=== PATIENT | female | born 1955 | race Caucasian/White ===

== ENCOUNTER → 2018-08-14 11:17 | Outpatient (CLI) | payer OTHER, SELFPAY ==
[2018-08-14 12:33] LABS: Hemoglobin A1C% w Est Avg Glu 6.9 % (4.0-6.0)
[2018-08-14 12:34] LABS: Add Manual Diff / Slide Review NO; Alanine Aminotransferase 31 IU/L (9-52); Albumin 4.4 g/dL (3.5-5.0); Albumin Globulin Ratio 1.6 (1.0-2.8); Alkaline Phosphatase 69 U/L (38-126); Aspartate Aminotransferase 23 IU/L (14-36); Basophils Percent Auto 1.8 % (0-2); Bilirubin Total 0.2 mg/dL (0.2-1.3); Blood Urea Nitrogen 23 mg/dL (7-17); Calcium 9.5 mg/dL (8.4-10.2); Carbon Dioxide 27 mmol/L (22-32); Chloride 100 mmol/L (98-107); Cholesterol 181 mg/dL (140-199); Eosinophils Percent Auto 1.8 % (2-4); Estimated Glomerular Filt Rate > 60.0 mL/min (>60); Globulin 2.7 g/dL (1.7-4.1); Glucose 140 mg/dL (80-110); HDL Cholesterol 61 mg/dL (40-60); HEMOLYSIS < 15 (0-50); Hematocrit 40.4 % (36-46); Hemoglobin 13.4 g/dL (12.0-16.0); LDL Cholesterol Calculated 64 mg/dL (<100); Lymphocytes Percent Auto 27.5 % (25-40); Mean Corpuscular HGB Conc 33.1 % (30-36); Mean Corpuscular Hemoglobin 28.3 PG (26-34); Mean Corpuscular Volume 85.5 fL (80-100); Monocytes Percent Auto 5.8 % (3-14); Neutrophils Absolute Auto 4500 /uL (3000-5900); Neutrophils Percent Auto 63.1 % (50-75); Platelet Count 311 X10^3/uL (150-400); Potassium 4.1 mmol/L (3.4-5.1); Red Blood Cell Count 4.72 X10^6/uL (4.0-5.2); Red Cell Distribution Width 13.3 % (11.6-14.8); Sodium 138 mmol/L (137-145); Total Protein 7.1 g/dL (6.3-8.2); Triglycerides 278 mg/dL (35-150); White Blood Cell Count 7.1 X10^3/uL (4.5-11.0)
[2018-08-14 13:05] LABS: TSH w/ Reflex to FT4 2.52 uIU/mL (0.47-4.68)
[2018-08-14 15:58] LABS: Vitamin D 25 Hydroxy (D3) 30.4 ng/mL (30.0-100.0)
== END ==
PROVIDERS: Visit Provider Student in an Organized Health Care Education/Training Program
DX: E55.9 Vitamin D deficiency, unspecified (principal); E66.9 Obesity, unspecified; E11.9 Type 2 diabetes mellitus without complications; M25.569 Pain in unspecified knee; R53.83 Other fatigue; I10 Essential (primary) hypertension
CPT/HCPCS: 36415; 80053; 80061; 82306; 83036; 84443; 85025

== ENCOUNTER → 2018-11-21 10:33 | Outpatient (CLI) | payer OTHER, SELFPAY ==
[2018-11-21 11:31] LABS: Alanine Aminotransferase 39 IU/L (9-52); Albumin 4.3 g/dL (3.5-5.0); Albumin Globulin Ratio 1.6 (1.0-2.8); Alkaline Phosphatase 68 U/L (38-126); Aspartate Aminotransferase 27 IU/L (14-36); BUN Creatinine Ratio 36.7 (6-22); Bilirubin Total 0.9 mg/dL (0.2-1.3); Blood Urea Nitrogen 22 mg/dL (7-17); Calcium 9.5 mg/dL (8.4-10.2); Carbon Dioxide 27 mmol/L (22-32); Chloride 99 mmol/L (98-107); Estimated Glomerular Filt Rate > 60.0 mL/min (>60); Globulin 2.7 g/dL (1.7-4.1); Glucose 151 mg/dL (80-110); HEMOLYSIS < 15 (0-50); Sodium 136 mmol/L (137-145); Triglycerides 79 mg/dL (35-150)
[2018-11-21 11:32] LABS: Hemoglobin A1C% w Est Avg Glu 7.6 % (4.0-6.0)
[2018-11-21 13:58] LABS: Creatinine Urine Random 46.2 mg/dL
[2018-11-21 14:08] LABS: Microalbumi Creatinin Ratio Ur 12.9 ug/mg CR (<30); Microalbumin Urine Random < 0.6 mg/dL (0-1.6)
== END ==
PROVIDERS: PCP Student in an Organized Health Care Education/Training Program; Visit Provider Student in an Organized Health Care Education/Training Program
DX: E11.9 Type 2 diabetes mellitus without complications (principal); E78.1 Pure hyperglyceridemia; E66.01 Morbid (severe) obesity due to excess calories; I10 Essential (primary) hypertension; Z79.899 Other long term (current) drug therapy
CPT/HCPCS: 36415; 80053; 82043; 82570; 83036; 84478

== ENCOUNTER → 2018-12-21 09:39 | Outpatient (CLI) | payer OTHER, SELFPAY ==
--- NOTE | 2018-12-21 09:42 | DI.MG.S_ITS ---
BILATERAL DIGITAL SCREENING MAMMOGRAM 3D/2D WITH CAD: 12/21/2018 CLINICAL: Routine screening. Comparison is made to exams dated: 07/02/2014 mammogram, 02/24/2011 mammogram, and 08/09/2009 mammogram - [facility]. There are scattered fibroglandular elements in both breasts. Current study was also evaluated with a Computer Aided Detection (CAD) system. There are benign calcifications in both breasts. No significant masses, calcifications, or other findings are seen in either breast. There has been no significant interval change. IMPRESSION: There is no mammographic evidence of malignancy. A 1 year screening mammogram is recommended. This exam was interpreted at Station ID: [id number]. NOTE: For mammograms, a report in lay terms will be sent to the patient. Approximately 15% of breast malignancies will not be visualized mammographically. In the management of a palpable breast mass, a negative mammogram must not discourage biopsy of a clinically suspicious lesion. Electronically Signed By: Ricardo rdz/hilary:12/23/2018 08:34:01 letter sent: Normal Exam ACR BI-RADS Category 2: Benign Finding(s) 3342F
== END ==
PROVIDERS: PCP Student in an Organized Health Care Education/Training Program; Visit Provider Student in an Organized Health Care Education/Training Program
DX: Z12.31 Encounter for screening mammogram for malignant neoplasm of breast (principal)
CPT/HCPCS: 77063; 77067

== ENCOUNTER → 2019-06-13 08:27 | Outpatient (CLI) | payer OTHER, SELFPAY ==
[2019-06-13 09:07] LABS: Hemoglobin A1C% w Est Avg Glu 7.1 % (4.0-6.0)
[2019-06-13 09:15] LABS: BUN Creatinine Ratio 33.3 (6-22); Blood Urea Nitrogen 20 mg/dL (7-17); Calcium 9.6 mg/dL (8.4-10.2); Carbon Dioxide 30 mmol/L (22-32); Chloride 98 mmol/L (98-107); Estimated Glomerular Filt Rate > 60.0 mL/min (>60); Glucose 149 mg/dL (80-110); HEMOLYSIS < 15 (0-50); Potassium 4.4 mmol/L (3.4-5.1); Sodium 138 mmol/L (137-145)
== END ==
PROVIDERS: PCP Student in an Organized Health Care Education/Training Program; Visit Provider Student in an Organized Health Care Education/Training Program
DX: E11.9 Type 2 diabetes mellitus without complications (principal); E87.1 Hypo-osmolality and hyponatremia; I10 Essential (primary) hypertension
CPT/HCPCS: 36415; 80048; 83036

== ENCOUNTER → 2019-06-17 09:43 | Outpatient (CLI) | payer OTHER, SELFPAY ==
--- NOTE | 2019-06-17 09:49 | DI.RAD.S_ITS ---
PROCEDURE: XR KNEE RT 3V INDICATIONS: Knee pain TECHNIQUE: 3 views of the knee were acquired. COMPARISON: None. FINDINGS: Bones: No fractures or dislocations. No suspicious bony lesions. Severe tricompartmental knee joint degeneration secondary to osteoarthritis. Soft tissues: Small joint effusion. No suspicious soft tissue calcifications. IMPRESSION: Severe osteoarthritis. Dictated by: Lucrecia Herrera M.D. on 06/17/2019 at 17:17 Approved by: Lucrecia Herrera M.D. on 06/17/2019 at 17:18
== END ==
PROVIDERS: PCP Student in an Organized Health Care Education/Training Program; Visit Provider Student in an Organized Health Care Education/Training Program
DX: M25.561 Pain in right knee (principal); M17.11 Unilateral primary osteoarthritis, right knee
CPT/HCPCS: 73562

== ENCOUNTER → 2019-09-19 09:57 | Outpatient (CLI) | payer OTHER, SELFPAY ==
[2019-09-19 10:30] LABS: Hemoglobin A1C% w Est Avg Glu 7.7 % (4.0-6.0)
[2019-09-19 11:01] LABS: Creatinine Urine Random 40.1 mg/dL
[2019-09-19 11:07] LABS: Microalbumi Creatinin Ratio Ur 14.9 ug/mg CR (<30); Microalbumin Urine Random < 0.6 mg/dL (0-1.6)
== END ==
PROVIDERS: PCP Student in an Organized Health Care Education/Training Program; Visit Provider Student in an Organized Health Care Education/Training Program
DX: E11.9 Type 2 diabetes mellitus without complications (principal)
CPT/HCPCS: 36415; 82043; 82570; 83036

== ENCOUNTER → 2019-10-02 14:03 | Outpatient (CLI) | payer OTHER, SELFPAY ==
[2019-10-02 14:11] LABS: Bacteria Urine None Seen
[2019-10-02 15:30] LABS: Appearance Urine UA CLEAR; Bilirubin Urine UA NEGATIVE (NEGATIVE); Color Urine UA YELLOW; Glucose Urine UA NEGATIVE (Negative); Ketones Urine UA NEGATIVE (NEGATIVE); Leukocyte Esterase Urine UA TRACE (NEGATIVE); Nitrite Urine UA NEGATIVE (Negative); Occult Blood Urine UA NEGATIVE (Negative); Protein Urine UA NEGATIVE (Negative); Urobilinogen Urine UA 0.2 E.U./dL (0.2)
[2019-10-02 15:35] LABS: pH Urine UA 6.5 (4.5-8.0)
[2019-10-02 15:46] LABS: Culture Indicated Urine Cult Not Indicated; RBC Urine 0-1/HPF (0-5/HPF); Squamous Epithelial Cell Urine 0-1 /HPF (0-5/HPF); WBC Urine 0-1/HPF (0-5/HPF)
== END ==
PROVIDERS: PCP Student in an Organized Health Care Education/Training Program; Visit Provider Student in an Organized Health Care Education/Training Program
DX: R35.0 Frequency of micturition (principal)
CPT/HCPCS: 81001

== ENCOUNTER → 2019-12-30 07:02 | Outpatient (CLI) | payer OTHER, SELFPAY ==
[2019-12-30 08:21] LABS: Hemoglobin A1C% w Est Avg Glu 6.8 % (4.0-6.0)
== END ==
PROVIDERS: PCP Student in an Organized Health Care Education/Training Program; Referring Provider Student in an Organized Health Care Education/Training Program; Visit Provider Student in an Organized Health Care Education/Training Program
DX: E11.9 Type 2 diabetes mellitus without complications (principal)
CPT/HCPCS: 36415; 83036

== ENCOUNTER → 2020-09-17 10:44 | Outpatient (CLI) | payer OTHER, SELFPAY ==
[2020-09-17 11:57] LABS: Hemoglobin A1C% w Est Avg Glu 7.2 % (4.0-6.0)
[2020-09-17 12:19] LABS: BUN Creatinine Ratio 27.6 (6-22); Blood Urea Nitrogen 29 mg/dL (7-17); Calcium 9.4 mg/dL (8.4-10.2); Carbon Dioxide 28 mmol/L (22-32); Chloride 104 mmol/L (98-107); Cholesterol 160 mg/dL (140-199); Estimated Glomerular Filt Rate 52.9 mL/min (>60); Glucose 127 mg/dL (80-110); HDL Cholesterol 66 mg/dL (40-60); HEMOLYSIS < 15 (0-50); LDL Cholesterol Calculated 23 mg/dL (<100); Potassium 4.6 mmol/L (3.4-5.1); Sodium 134 mmol/L (137-145); Triglycerides 354 mg/dL (35-150)
[2020-09-17 12:20] LABS: Creatinine Urine Random 65.2 mg/dL
[2020-09-17 12:26] LABS: Microalbumin Urine Random < 0.6 mg/dL (0-1.6)
== END ==
PROVIDERS: PCP Student in an Organized Health Care Education/Training Program; Referring Provider Student in an Organized Health Care Education/Training Program; Visit Provider Student in an Organized Health Care Education/Training Program
DX: E11.69 Type 2 diabetes mellitus with other specified complication (principal); E78.5 Hyperlipidemia, unspecified; I10 Essential (primary) hypertension
CPT/HCPCS: 36415; 80048; 80061; 82043; 82570; 83036

== ENCOUNTER → 2020-09-30 08:27 | Outpatient (CLI) | payer OTHER, SELFPAY ==
[2020-09-30 09:55] LABS: BUN Creatinine Ratio 39.1 (6-22); Blood Urea Nitrogen 27 mg/dL (7-17); Estimated Glomerular Filt Rate > 60.0 mL/min (>60); Triglycerides 178 mg/dL (35-150)
== END ==
PROVIDERS: PCP Student in an Organized Health Care Education/Training Program; Referring Provider Student in an Organized Health Care Education/Training Program; Visit Provider Student in an Organized Health Care Education/Training Program
DX: E78.1 Pure hyperglyceridemia (principal); N17.9 Acute kidney failure, unspecified
CPT/HCPCS: 36415; 82565; 84478; 84520

== ENCOUNTER → 2020-12-21 07:42 | Outpatient (CLI) | payer OTHER, SELFPAY ==
[2020-12-21 08:51] LABS: Hemoglobin A1C% w Est Avg Glu 7.3 % (4.0-6.0)
== END ==
PROVIDERS: PCP Student in an Organized Health Care Education/Training Program; Referring Provider Student in an Organized Health Care Education/Training Program; Visit Provider Student in an Organized Health Care Education/Training Program
DX: E11.9 Type 2 diabetes mellitus without complications (principal)
CPT/HCPCS: 36415; 83036

== ENCOUNTER → 2021-07-01 09:14 | Outpatient (CLI) | payer OTHER, SELFPAY ==
[2021-07-01 10:29] LABS: Hemoglobin A1C% w Est Avg Glu 7.1 % (4.0-6.0)
== END ==
PROVIDERS: PCP Student in an Organized Health Care Education/Training Program; Referring Provider Student in an Organized Health Care Education/Training Program; Visit Provider Student in an Organized Health Care Education/Training Program
DX: E11.9 Type 2 diabetes mellitus without complications (principal)
CPT/HCPCS: 36415; 83036

== ENCOUNTER → 2021-10-19 09:35 | Outpatient (CLI) | payer MEDICARE, OTHER, SELFPAY ==
[2021-10-20 08:28] LABS: Fecal Immunochemical Test Negative (Negative)
== END ==
PROVIDERS: PCP Student in an Organized Health Care Education/Training Program; Referring Provider Student in an Organized Health Care Education/Training Program; Visit Provider Student in an Organized Health Care Education/Training Program
DX: Z12.11 Encounter for screening for malignant neoplasm of colon (principal)
CPT/HCPCS: 82274

== ENCOUNTER → 2022-01-11 09:34 | Outpatient (CLI) | payer MEDICARE, OTHER, SELFPAY ==
[2022-01-11 10:22] LABS: Hemoglobin A1C% w Est Avg Glu 8.1 % (4.0-6.0)
[2022-01-11 10:29] LABS: Blood Urea Nitrogen 24 mg/dL (7-17); Calcium 8.9 mg/dL (8.4-10.2); Carbon Dioxide 24 mmol/L (22-32); Chloride 103 mmol/L (98-107); Estimated Glomerular Filt Rate > 60 mL/min (>60); Glucose 172 mg/dL (80-110); HEMOLYSIS 33 (0-50); Potassium 4.4 mmol/L (3.4-5.1); Sodium 135 mmol/L (137-145); Triglycerides 153 mg/dL (35-150)
[2022-01-11 12:05] LABS: Creatinine Urine Random 66.5 mg/dL
[2022-01-11 12:11] LABS: Microalbumin Urine Random < 0.6 mg/dL (0-1.6)
== END ==
PROVIDERS: PCP Student in an Organized Health Care Education/Training Program; Referring Provider Student in an Organized Health Care Education/Training Program; Visit Provider Student in an Organized Health Care Education/Training Program
DX: E11.69 Type 2 diabetes mellitus with other specified complication (principal); E78.5 Hyperlipidemia, unspecified; E11.9 Type 2 diabetes mellitus without complications
CPT/HCPCS: 36415; 80048; 82043; 82570; 83036; 84478

== ENCOUNTER → 2022-04-21 07:53 | Outpatient (CLI) | payer MEDICARE, OTHER, SELFPAY ==
[2022-04-21 09:44] LABS: Hemoglobin A1C% w Est Avg Glu 7.2 % (4.0-6.0)
== END ==
PROVIDERS: PCP Student in an Organized Health Care Education/Training Program; Referring Provider Student in an Organized Health Care Education/Training Program; Visit Provider Student in an Organized Health Care Education/Training Program
DX: E11.9 Type 2 diabetes mellitus without complications (principal)
CPT/HCPCS: 36415; 83036

== ENCOUNTER → 2022-09-09 09:08 | Outpatient (CLI) | payer MEDICARE, OTHER, SELFPAY ==
[2022-09-09 09:31] LABS: Add Manual Diff / Slide Review NO; Basophils Absolute Auto 0 /uL (0-100); Basophils Percent Auto 0.7 % (0-2); Eosinophils Absolute Auto 100 /uL (0-450); Eosinophils Percent Auto 1.9 % (2-4); Hematocrit 39.2 % (36-46); Hemoglobin 13.3 g/dL (12.0-16.0); Lymphocytes Absolute Auto 1900 /uL (1100-4500); Lymphocytes Percent Auto 28.2 % (25-40); Mean Corpuscular HGB Conc 33.8 % (30-36); Mean Corpuscular Hemoglobin 28.3 PG (26-34); Mean Corpuscular Volume 83.6 fL (80-100); Monocytes Absolute Auto 400 /uL (0-900); Monocytes Percent Auto 6.4 % (3-14); Neutrophils Absolute Auto 4200 /uL (1500-7000); Neutrophils Percent Auto 62.8 % (50-75); Platelet Count 267 X10^3/uL (150-400); Red Blood Cell Count 4.69 X10^6/uL (4.0-5.2); Red Cell Distribution Width 13.8 % (11.6-14.8); White Blood Cell Count 6.7 X10^3/uL (4.5-11.0)
[2022-09-09 09:40] LABS: Hemoglobin A1C% w Est Avg Glu 7.1 % (4.0-6.0)
[2022-09-09 09:46] LABS: Alanine Aminotransferase 27 IU/L (<35); Albumin 4.1 g/dL (3.5-5.0); Albumin Globulin Ratio 1.4 (1.0-2.8); Alkaline Phosphatase 77 U/L (38-126); Aspartate Aminotransferase 26 IU/L (14-36); BUN Creatinine Ratio 30.6 (6-22); Bilirubin Total 0.9 mg/dL (0.2-1.3); Blood Urea Nitrogen 22 mg/dL (7-17); Calcium 8.9 mg/dL (8.4-10.2); Carbon Dioxide 25 mmol/L (22-32); Chloride 101 mmol/L (98-107); Cholesterol 169 mg/dL (140-199); Estimated Glomerular Filt Rate > 60 mL/min (>60); Glucose 134 mg/dL (80-110); HDL Cholesterol 62 mg/dL (40-60); HEMOLYSIS < 15 (0-50); LDL Cholesterol Calculated 70 mg/dL (<100); Potassium 4.1 mmol/L (3.4-5.1); Sodium 136 mmol/L (137-145); Total Protein 7.1 g/dL (6.3-8.2); Triglycerides 183 mg/dL (35-150)
[2022-09-09 10:16] LABS: Creatinine Urine Random 117.1 mg/dL
[2022-09-09 10:21] LABS: Microalbumi Creatinin Ratio Ur 9.3 ug/mg CR (<30); Microalbumin Urine Random 1.1 mg/dL (0-1.6)
== END ==
PROVIDERS: PCP Family Medicine; Referring Provider Family Medicine; Visit Provider Family Medicine
DX: E11.69 Type 2 diabetes mellitus with other specified complication (principal); E66.01 Morbid (severe) obesity due to excess calories; E78.5 Hyperlipidemia, unspecified; F10.10 Alcohol abuse, uncomplicated; I10 Essential (primary) hypertension
CPT/HCPCS: 36415; 80053; 80061; 82043; 82570; 83036; 85025

== ENCOUNTER → 2022-10-21 10:43 | Outpatient (CLI) | payer MEDICARE, OTHER, SELFPAY ==
[2022-10-21 13:12] LABS: Influenza A - CEPHEID Flu A NEGATIVE (NEGATIVE); Influenza B - CEPHEID Flu B NEGATIVE (NEGATIVE); Respiratory Syncytial Virus Negative (Negative)
[2022-10-21 13:13] LABS: COVID-19 CEPHEID 4-PLEX PCR POSITIVE (Negative)
== END ==
PROVIDERS: PCP Student in an Organized Health Care Education/Training Program; Visit Provider Physician Assistant
DX: U07.1 COVID-19 (principal); R05.9 Cough, unspecified; Z20.822 Contact with and (suspected) exposure to COVID-19
CPT/HCPCS: 0241U

== ENCOUNTER → 2023-01-10 08:56 | Outpatient (CLI) | payer MEDICARE, OTHER, SELFPAY ==
[2023-01-11 15:51] LABS: Fecal Immunochemical Test Negative (Negative)
== END ==
PROVIDERS: PCP Student in an Organized Health Care Education/Training Program; Referring Provider Student in an Organized Health Care Education/Training Program; Visit Provider Student in an Organized Health Care Education/Training Program
DX: Z12.11 Encounter for screening for malignant neoplasm of colon (principal)
CPT/HCPCS: 82274

== ENCOUNTER → 2023-06-25 10:53 | Outpatient (CLI) | payer MEDICARE, OTHER, SELFPAY ==
[2023-06-25 12:17] LABS: Hemoglobin A1C% w Est Avg Glu 6.7 % (4.0-6.0)
[2023-06-25 12:32] LABS: Alanine Aminotransferase 25 IU/L (<35); Albumin 4.4 g/dL (3.5-5.0); Albumin Globulin Ratio 1.6 (1.0-2.8); Alkaline Phosphatase 73 U/L (38-126); Aspartate Aminotransferase 27 IU/L (14-36); BUN Creatinine Ratio 41.3 (6-22); Bilirubin Total 0.4 mg/dL (0.2-1.3); Blood Urea Nitrogen 33 mg/dL (7-17); Carbon Dioxide 24 mmol/L (22-32); Chloride 101 mmol/L (98-107); Estimated Glomerular Filt Rate > 60 mL/min (>60); Globulin 2.8 g/dL (1.7-4.1); Glucose 131 mg/dL (80-110); HEMOLYSIS < 15 (0-50); Potassium 4.4 mmol/L (3.4-5.1); Sodium 136 mmol/L (137-145); Total Protein 7.2 g/dL (6.3-8.2)
[2023-06-25 13:03] LABS: TSH w/ Reflex to FT4 2.67 uIU/mL (0.47-4.68)
[2023-06-25 14:48] LABS: Vitamin D 25 Hydroxy (D3) 36.5 ng/mL (30.0-100.0)
== END ==
PROVIDERS: PCP Student in an Organized Health Care Education/Training Program; Referring Provider Student in an Organized Health Care Education/Training Program; Visit Provider Student in an Organized Health Care Education/Training Program
DX: E11.9 Type 2 diabetes mellitus without complications (principal)
CPT/HCPCS: 36415; 80053; 82306; 83036; 84443

== ENCOUNTER → 2023-06-27 12:47 | Outpatient (CLI) | payer MEDICARE, OTHER, SELFPAY ==
--- NOTE | 2023-06-27 12:48 | DI.MG.S_ITS ---
BILATERAL DIGITAL SCREENING MAMMOGRAM 3D/2D WITH CAD: 06/27/2023 CLINICAL: Routine screening. Comparison is made to exams dated: 12/21/2018 mammogram - [facility], 07/02/2014 mammogram, and 02/24/2011 mammogram - [facility]. There are scattered areas of fibroglandular density in both breasts (category b / 25%-50% glandular tissue). Current study was also evaluated with a Computer Aided Detection (CAD) system. There is a possible developing focal asymmetry in the left breast at 2 o'clock middle depth. This is more prominent. No other significant masses, calcifications, or other findings are seen in either breast. IMPRESSION: INCOMPLETE: NEEDS ADDITIONAL IMAGING EVALUATION The possible developing focal asymmetry in the left breast is indeterminate. Additional views with possible ultrasound are recommended. Based on the Tyrer Cuzick model (a risk assessment model) the patient's lifetime risk is 4.7% and her 10 year risk is 2.4%. According to the ACR, ACS, and NCCN guidelines, an annual breast MRI exam along with mammogram is recommended if the patient's lifetime risk is 20% or greater. This exam was interpreted at Station ID: [id number]. NOTE: For mammograms, a report in lay terms will be sent to the patient. Approximately 15% of breast malignancies will not be visualized mammographically. In the management of a palpable breast mass, a negative mammogram must not discourage biopsy of a clinically suspicious lesion. Electronically Signed By: Ricardo Godoy M.D. aty/:06/28/2023 07:11:07 letter sent: Additional Imaging Needed ACR BI-RADS Category 0: Incomplete 3340F
== END ==
PROVIDERS: PCP Student in an Organized Health Care Education/Training Program; Referring Provider Student in an Organized Health Care Education/Training Program; Visit Provider Student in an Organized Health Care Education/Training Program
DX: Z12.31 Encounter for screening mammogram for malignant neoplasm of breast (principal); N64.89 Other specified disorders of breast
CPT/HCPCS: 77063; 77067

== ENCOUNTER → 2023-07-05 11:58 | Outpatient (CLI) | payer MEDICARE, OTHER, SELFPAY ==
--- NOTE | 2023-07-05 | DI.MG.S_ITS ---
UNILATERAL LEFT DIGITAL DIAGNOSTIC MAMMOGRAM 3D/2D WITH ADDITIONAL VIEWS: 07/05/2023 CLINICAL: Additional evaluation requested from prior study. Comparison is made to exams dated: 06/27/2023 mammogram, 12/21/2018 mammogram - [facility], and 07/02/2014 mamm[facility] - [facility]. There are scattered areas of fibroglandular density in the left breast (category b / 25%-50% glandular tissue). The possible developing focal asymmetry in the left breast at 2 o'clock middle depth is not reproduced and presumably represented superimposed breast tissue. No other significant masses or calcifications are seen in the breast. IMPRESSION: INCOMPLETE: NEEDS ADDITIONAL IMAGING EVALUATION An ultrasound is recommended to confirm the no longer seen focal asymmetry in the left breast middle depth. Based on the Tyrer Cuzick model (a risk assessment model) the patient's lifetime risk is 4.7% and her 10 year risk is 2.4%. According to the ACR, ACS, and NCCN guidelines, an annual breast MRI exam along with mammogram is recommended if the patient's lifetime risk is 20% or greater. This exam was interpreted at Station ID: [id number]. NOTE: For mammograms, a report in lay terms will be sent to the patient. Approximately 15% of breast malignancies will not be visualized mammographically. In the management of a palpable breast mass, a negative mammogram must not discourage biopsy of a clinically suspicious lesion. Electronically Signed By: Kwesi ervin/hilary:07/05/2023 13:35:06 ACR BI-RADS Category 0: Incomplete 3340F
--- NOTE | 2023-07-05 12:00 | DI.US.S_ITS ---
LIMITED ULTRASOUND OF LEFT BREAST AND AXILLA: 07/05/2023 CLINICAL: Patient returns today to evaluate a focal asymmetry in the left breast. Comparison is made to exams dated: 07/05/2023 mammogram, 06/27/2023 mammogram, 12/21/2018 mammogram - [facility], and 07/02/2014 mammogram - [facility]. Color flow ultrasound of the left breast 2 o'clock, and axilla regions was performed. Weeks scale images of the real-time examination were reviewed. There is a benign normal lymph node in the left breast at 2 o'clock that is an incidental finding. No significant abnormalities were seen sonographically in the left axilla. IMPRESSION: BENIGN There is no sonographic evidence of malignancy. There is no abnormality seen in the left breast to correspond with the mammography finding which is consistent with normal fibroglandular tissue. Return to annual mammogram screening schedule is recommended. This exam was interpreted at Station ID: [id number]. Electronically Signed By: Kwesi ervin/hilary:07/05/2023 13:38:00 letter sent: Normal Exam Ultrasound BI-RADS: 2 Benign
== END ==
PROVIDERS: PCP Student in an Organized Health Care Education/Training Program; Referring Provider Student in an Organized Health Care Education/Training Program; Visit Provider Student in an Organized Health Care Education/Training Program
DX: N63.20 Unspecified lump in the left breast, unspecified quadrant; Z85.831 Personal history of malignant neoplasm of soft tissue; R92.8 Other abnormal and inconclusive findings on diagnostic imaging of breast
CPT/HCPCS: 76642; 77065; G0279

== ENCOUNTER → 2023-10-29 09:40 | Outpatient (CLI) | payer MEDICARE, OTHER, SELFPAY ==
[2023-10-29 11:33] LABS: Hemoglobin A1C% w Est Avg Glu 8.2 % (4.0-6.0)
== END ==
PROVIDERS: PCP Student in an Organized Health Care Education/Training Program; Referring Provider Student in an Organized Health Care Education/Training Program; Visit Provider Student in an Organized Health Care Education/Training Program
DX: E11.9 Type 2 diabetes mellitus without complications (principal)
CPT/HCPCS: 36415; 83036

== ENCOUNTER → 2024-02-15 08:38 | Outpatient (CLI) | payer MEDICARE, OTHER, SELFPAY ==
[2024-02-15 10:11] LABS: Alanine Aminotransferase 16 IU/L (<35); Albumin 4.1 g/dL (3.5-5.0); Alkaline Phosphatase 55 U/L (38-126); Aspartate Aminotransferase 24 IU/L (14-36); BUN Creatinine Ratio 33.3 (6-22); Bilirubin Total 0.8 mg/dL (0.2-1.3); Blood Urea Nitrogen 28 mg/dL (7-17); Calcium 9.1 mg/dL (8.4-10.2); Carbon Dioxide 24 mmol/L (22-32); Chloride 108 mmol/L (98-107); Cholesterol 128 mg/dL (140-199); Estimated Glomerular Filt Rate > 60 mL/min (>60); Globulin 2.1 g/dL (1.7-4.1); Glucose 129 mg/dL (80-110); HDL Cholesterol 68 mg/dL (40-60); HEMOLYSIS < 15 (0-50); LDL Cholesterol Calculated 43 mg/dL (<100); Potassium 4.4 mmol/L (3.4-5.1); Sodium 139 mmol/L (137-145); Total Protein 6.2 g/dL (6.3-8.2); Triglycerides 84 mg/dL (35-150)
== END ==
PROVIDERS: PCP Student in an Organized Health Care Education/Training Program; Referring Provider Student in an Organized Health Care Education/Training Program; Visit Provider Student in an Organized Health Care Education/Training Program
DX: E11.9 Type 2 diabetes mellitus without complications (principal)
CPT/HCPCS: 36415; 80053; 80061

== ENCOUNTER → 2024-04-07 09:33 | Outpatient (CLI) | payer MEDICARE, OTHER, SELFPAY | PROVIDERS: PCP Student in an Organized Health Care Education/Training Program; Visit Provider Physician Assistant Medical | DX: R30.0 Dysuria (principal) | CPT/HCPCS: 87077; 87086; 87186 ==

== ENCOUNTER → 2024-05-16 08:53 | Outpatient (CLI) | payer MEDICARE, OTHER, SELFPAY ==
[2024-05-16 09:19] LABS: Add Manual Diff / Slide Review NO; Basophils Absolute Auto 100 /uL (0-100); Basophils Percent Auto 2.2 % (0-2); Eosinophils Absolute Auto 100 /uL (0-450); Eosinophils Percent Auto 2.2 % (2-4); Hematocrit 39.7 % (36-46); Hemoglobin 13.1 g/dL (12.0-16.0); Lymphocytes Absolute Auto 1500 /uL (1100-4500); Lymphocytes Percent Auto 27.8 % (25-40); Mean Corpuscular Hemoglobin 27.8 PG (26-34); Mean Corpuscular Volume 84.1 fL (80-100); Monocytes Absolute Auto 400 /uL (0-900); Neutrophils Absolute Auto 3400 /uL (1500-7000); Neutrophils Percent Auto 60.8 % (50-75); Platelet Count 319 X10^3/uL (150-400); Red Blood Cell Count 4.72 X10^6/uL (4.0-5.2); Red Cell Distribution Width 13.9 % (11.6-14.8); White Blood Cell Count 5.6 X10^3/uL (4.5-11.0)
[2024-05-16 10:08] LABS: Creatinine Urine Random 107.41 mg/dL
[2024-05-16 10:15] LABS: Microalbumin Urine Random 0.7 mg/dL (0-1.6)
[2024-05-16 10:16] LABS: Alanine Aminotransferase 19 IU/L (<35); Albumin 3.8 g/dL (3.5-5.0); Albumin Globulin Ratio 1.6 (1.0-2.8); Alkaline Phosphatase 59 U/L (38-126); Aspartate Aminotransferase 25 IU/L (14-36); BUN Creatinine Ratio 33.8 (6-22); Bilirubin Total 0.6 mg/dL (0.2-1.3); Blood Urea Nitrogen 23 mg/dL (7-17); Calcium 9.4 mg/dL (8.4-10.2); Carbon Dioxide 27 mmol/L (22-32); Chloride 102 mmol/L (98-107); Cholesterol 130 mg/dL (140-199); Estimated Glomerular Filt Rate > 60 mL/min (>60); Globulin 2.4 g/dL (1.7-4.1); Glucose 135 mg/dL (80-110); HDL Cholesterol 70 mg/dL (40-60); HEMOLYSIS < 15 (0-50); LDL Cholesterol Calculated 47 mg/dL (<100); Potassium 4.8 mmol/L (3.4-5.1); Sodium 134 mmol/L (137-145); Total Protein 6.2 g/dL (6.3-8.2); Triglycerides 64 mg/dL (35-150)
[2024-05-16 10:47] LABS: Hemoglobin A1C% w Est Avg Glu 6.2 % (4.0-6.0)
== END ==
PROVIDERS: PCP Student in an Organized Health Care Education/Training Program; Referring Provider Student in an Organized Health Care Education/Training Program; Visit Provider Student in an Organized Health Care Education/Training Program
DX: E11.9 Type 2 diabetes mellitus without complications (principal); I10 Essential (primary) hypertension
CPT/HCPCS: 36415; 80053; 80061; 82043; 82570; 83036; 85025

== ENCOUNTER → 2024-05-21 12:04 | Outpatient (CLI) | payer MEDICARE, OTHER, SELFPAY ==
[2024-05-23 10:40] LABS: Fecal Immunochemical Test Negative (Negative)
== END ==
PROVIDERS: PCP Student in an Organized Health Care Education/Training Program; Referring Provider Student in an Organized Health Care Education/Training Program; Visit Provider Student in an Organized Health Care Education/Training Program
DX: Z12.11 Encounter for screening for malignant neoplasm of colon (principal)
CPT/HCPCS: 82274

== ENCOUNTER → 2024-05-29 10:58 | Outpatient (CLI) | payer MEDICARE, OTHER, SELFPAY ==
[2024-05-29 12:09] LABS: Appearance Urine UA CLEAR; Bilirubin Urine UA NEGATIVE (NEGATIVE); Color Urine UA YELLOW; Glucose Urine UA NEGATIVE (Negative); Ketones Urine UA NEGATIVE (NEGATIVE); Leukocyte Esterase Urine UA TRACE (NEGATIVE); Nitrite Urine UA NEGATIVE (Negative); Occult Blood Urine UA NEGATIVE (Negative); Protein Urine UA NEGATIVE (Negative)
[2024-05-29 12:26] LABS: Bacteria Urine Occasional (0-1); Culture Indicated Urine Cult Not Indicated; RBC Urine 0-1/HPF (0-5/HPF); Squamous Epithelial Cell Urine 1-5 /HPF (0-5/HPF); Urine Volume 10mL (spun); WBC Urine 0-1/HPF (0-5/HPF)
== END ==
PROVIDERS: PCP Student in an Organized Health Care Education/Training Program; Referring Provider Urology; Visit Provider Urology
DX: R31.0 Gross hematuria (principal)
CPT/HCPCS: 81001

== ENCOUNTER → 2024-07-11 16:47 | Outpatient (CLI) | payer MEDICARE, OTHER, SELFPAY | PROVIDERS: PCP Student in an Organized Health Care Education/Training Program; Referring Provider Physician Assistant Medical; Visit Provider Physician Assistant Medical | DX: R30.0 Dysuria (principal); N81.4 Uterovaginal prolapse, unspecified | CPT/HCPCS: 87077; 87086; 87186 ==

== ENCOUNTER → 2024-07-19 09:12 | Outpatient (CLI) | payer MEDICARE, OTHER, SELFPAY ==
[2024-07-19 10:13] LABS: Appearance Urine UA CLEAR; Bilirubin Urine UA NEGATIVE (NEGATIVE); Color Urine UA YELLOW; Glucose Urine UA NEGATIVE (Negative); Ketones Urine UA NEGATIVE (NEGATIVE); Leukocyte Esterase Urine UA NEGATIVE (NEGATIVE); Nitrite Urine UA NEGATIVE (Negative); Occult Blood Urine UA NEGATIVE (Negative); Protein Urine UA NEGATIVE (Negative); Specific Gravity Urine UA 1.025 (1.000-1.035); Urobilinogen Urine UA 0.2 E.U./dL (0.2)
[2024-07-19 10:28] LABS: Amorphous Sediment Urine 1+; Bacteria Urine None Seen; Culture Indicated Urine Cult Not Indicated; RBC Urine 0-1/HPF (0-5/HPF); Squamous Epithelial Cell Urine 0-1 /HPF (0-5/HPF); Urine Volume 10mL (spun); WBC Urine 1-5/HPF (0-5/HPF)
== END ==
PROVIDERS: PCP Student in an Organized Health Care Education/Training Program; Referring Provider Student in an Organized Health Care Education/Training Program; Visit Provider Student in an Organized Health Care Education/Training Program
DX: R39.9 Unspecified symptoms and signs involving the genitourinary system (principal)
CPT/HCPCS: 81001

== ENCOUNTER → 2024-07-25 13:26 | Outpatient (CLI) | payer MEDICARE, OTHER, SELFPAY | PROVIDERS: PCP Student in an Organized Health Care Education/Training Program; Visit Provider Student in an Organized Health Care Education/Training Program | DX: N89.8 Other specified noninflammatory disorders of vagina (principal) | CPT/HCPCS: 87210 ==

== ENCOUNTER → 2024-07-25 13:39 | Outpatient (CLI) | payer MEDICARE, OTHER, SELFPAY ==
[2024-07-25 14:26] LABS: Add Manual Diff / Slide Review NO; Basophils Absolute Auto 200 /uL (0-100); Basophils Percent Auto 3.5 % (0-2); Eosinophils Absolute Auto 100 /uL (0-450); Eosinophils Percent Auto 1.7 % (2-4); Hematocrit 39.5 % (36-46); Hemoglobin 13.2 g/dL (12.0-16.0); Lymphocytes Absolute Auto 1400 /uL (1100-4500); Lymphocytes Percent Auto 26.7 % (25-40); Mean Corpuscular HGB Conc 33.4 % (30-36); Mean Corpuscular Hemoglobin 28.4 PG (26-34); Mean Corpuscular Volume 85.1 fL (80-100); Monocytes Absolute Auto 300 /uL (0-900); Monocytes Percent Auto 6.1 % (3-14); Neutrophils Absolute Auto 3200 /uL (1500-7000); Platelet Count 266 X10^3/uL (150-400); Red Blood Cell Count 4.64 X10^6/uL (4.0-5.2); Red Cell Distribution Width 16.2 % (11.6-14.8); White Blood Cell Count 5.2 X10^3/uL (4.5-11.0)
[2024-07-25 14:40] LABS: Alanine Aminotransferase 19 IU/L (<35); Albumin 4.4 g/dL (3.5-5.0); Albumin Globulin Ratio 2.1 (1.0-2.8); Alkaline Phosphatase 71 U/L (38-126); Aspartate Aminotransferase 23 IU/L (14-36); BUN Creatinine Ratio 40.9 (6-22); Bilirubin Total 0.5 mg/dL (0.2-1.3); Blood Urea Nitrogen 38 mg/dL (7-17); Carbon Dioxide 26 mmol/L (22-32); Chloride 105 mmol/L (98-107); Estimated Glomerular Filt Rate > 60 mL/min (>60); Globulin 2.1 g/dL (1.7-4.1); Glucose 112 mg/dL (80-110); HEMOLYSIS < 15 (0-50); Potassium 4.3 mmol/L (3.4-5.1); Sodium 139 mmol/L (137-145); Total Protein 6.5 g/dL (6.3-8.2)
[2024-07-25 15:08] LABS: TSH w/ Reflex to FT4 2.27 uIU/mL (0.47-4.68)
[2024-07-25 15:50] LABS: Erythrocyte Sedimentation Rate 4 MM/HR (0-20)
== END ==
LOC: LAB 13:40
PROVIDERS: PCP Student in an Organized Health Care Education/Training Program; Referring Provider Student in an Organized Health Care Education/Training Program; Visit Provider Student in an Organized Health Care Education/Training Program
DX: R63.4 Abnormal weight loss (principal); N89.8 Other specified noninflammatory disorders of vagina
CPT/HCPCS: 36415; 80053; 84443; 85025; 85651; 87210

== ENCOUNTER → 2024-08-26 08:39 | Outpatient (CLI) | payer MEDICARE, OTHER, SELFPAY ==
[2024-08-26 10:38] LABS: Hemoglobin A1C% w Est Avg Glu 5.8 % (4.0-6.0)
[2024-08-26 10:39] LABS: Alanine Aminotransferase 19 IU/L (<35); Albumin 4.2 g/dL (3.5-5.0); Albumin Globulin Ratio 1.8 (1.0-2.8); Alkaline Phosphatase 63 U/L (38-126); Aspartate Aminotransferase 24 IU/L (14-36); Bilirubin Total 0.6 mg/dL (0.2-1.3); Blood Urea Nitrogen 24 mg/dL (7-17); Calcium 9.4 mg/dL (8.4-10.2); Carbon Dioxide 28 mmol/L (22-32); Chloride 103 mmol/L (98-107); Cholesterol 155 mg/dL (140-199); Estimated Glomerular Filt Rate > 60 mL/min (>60); Globulin 2.3 g/dL (1.7-4.1); Glucose 118 mg/dL (80-110); HDL Cholesterol 75 mg/dL (40-60); HEMOLYSIS < 15 (0-50); LDL Cholesterol Calculated 62 mg/dL (<100); Potassium 4.3 mmol/L (3.4-5.1); Sodium 137 mmol/L (137-145); Total Protein 6.5 g/dL (6.3-8.2); Triglycerides 90 mg/dL (35-150)
[2024-08-26 10:54] LABS: Creatinine Urine Random 74.44 mg/dL
[2024-08-26 11:00] LABS: Microalbumin Urine Random 0.8 mg/dL (0-1.6)
== END ==
PROVIDERS: PCP Student in an Organized Health Care Education/Training Program; Referring Provider Student in an Organized Health Care Education/Training Program; Visit Provider Student in an Organized Health Care Education/Training Program
DX: E11.9 Type 2 diabetes mellitus without complications (principal)
CPT/HCPCS: 36415; 80053; 80061; 82043; 82570; 83036

== ENCOUNTER → 2024-09-12 11:49 | Outpatient (CLI) | payer MEDICARE, OTHER, SELFPAY | PROVIDERS: PCP Student in an Organized Health Care Education/Training Program; Visit Provider Nurse Practitioner Family | DX: R39.9 Unspecified symptoms and signs involving the genitourinary system (principal) | CPT/HCPCS: 87077; 87086; 87186 ==

== ENCOUNTER 2024-09-16 16:19 | Emergency (ER) | payer MEDICARE, OTHER, SELFPAY ==
[2024-09-16 16:43] VITALS: BP 144/80; PULSE 73; RESP 16; TEMP 36.8; O2SAT 99; BMI 29.2
--- NOTE | 2024-09-16 17:53 | DI.US.S_ITS ---
PROCEDURE: US PELVIC COMPLETE INDICATIONS: DUB; POSTMENOPAUSAL TECHNIQUE: Real-time scanning was performed of the pelvic organs, with image documentation. Additional endovaginal scanning was necessary due to incomplete visualization of the adnexal and endometrial structures by transabdominal scanning. COMPARISON: None. FINDINGS: Uterus: Uterus is anteverted and normal in size at 5.1 x 2.2 cm. The myometrium is heterogeneous. The endometrium measures 1.2 mm combined thickness. There is 0.5 x 0.3 x 0.4 cm echogenic nonvascular focus adjacent to the endometrial canal. Ovaries: Ovaries are not visualized Other: No pathologic free abdominal or pelvic fluid. IMPRESSION: Normal endometrial thickness. Myometrial 0.5 cm nonvascular echogenic focus just deep to the endometrial canal. Finding may represent possible fibroid. Further evaluation with pelvic MRI can be performed if clinically appropriate. Approved by: Che Lynne M.D.,Ph.D. on 09/16/2024 at 19:35
--- NOTE | 2024-09-16 18:46 | ED_ITS ---
HPI - Female Genitourinary <Catalino Alba PA-C - Last Filed: 09/16/24 18:59> General Chief complaint: Urogenital-Female Stated complaint: female issues Time Seen by Provider: 09/16/24 17:11 Source: patient Mode of arrival: Ambulatory History of Present Illness HPI Narrative: 68-year-old female with past medical history type 2 diabetes, hypertension, hyperlipidemia, cystocele, alcohol use disorder in remission presents to the ED with 4 days of vaginal bleeding. States that it is not a lot of blood and that it is combined with some vaginal discharge. Patient states that she has to frequently put back the cystocele, has an appointment scheduled with the strategic partnership representative for September 25 for further evaluation of the cystocele. Patient was recently treated for a UTI with Macrobid, states that her vaginal bleeding started the day after she started the antibiotics. Patient states that her UTI symptoms have improved. Denies fever, chills, chest pain, shortness of breath, lightheadedness, dizziness, syncope, dysuria. Related Data Home Medications Medication Instructions Recorded Confirmed multivitamin 1 tab PO DAILY 08/14/18 09/12/24 cefdinir 300 mg capsule 300 mg PO BID 09/12/24 09/12/24 Previous Rx's Medication Instructions Recorded metformin 1,000 mg tablet 1,000 mg PO BID #180 tabs 12/10/23 atorvastatin 20 mg tablet 20 mg PO DAILY #90 tabs 01/30/24 blood sugar diagnostic (OneTouch #100 ea 03/03/24 Verio test strips) fluconazole 150 mg tablet 150 mg PO Q3D 2 doses #2 tabs 07/25/24 nitrofurantoin 100 mg PO BID 7 days #14 caps 09/12/24 monohydrate/macrocrystals 100 mg capsule (Macrobid) Allergies Allergy/AdvReac Type Severity Reaction Status Date / Time No Known Drug Allergies Allergy Verified 09/12/24 11:48 Review of Systems <Catalino Alba PA-C - Last Filed: 09/16/24 18:59> Constitutional Constitutional: Denies chills, Denies fatigue, Denies fever(s), Denies frequent falls, Denies lethargy and Denies weakness Eyes Eyes: Denies change in vision, Denies eye discharge, Denies irritation and Denies loss of vision ENT Ears, Nose, Mouth, and Throat: Denies change in voice, Denies dizziness, Denies neck pain, Denies sore throat and Denies throat swelling Cardiovascular Cardiovascular: Denies chest pain, Denies irregular heart rhythm, Denies lightheadedness, Denies palpitations, Denies dyspnea, Denies dyspnea on exertion and Denies orthopnea Respiratory Respiratory: Denies cough, Denies dyspnea, Denies dyspnea on exertion and Denies wheezing Gastrointestinal Gastrointestinal: Denies abdominal pain, Denies change in bowel habits, Denies diarrhea, Denies nausea and Denies vomiting Genitourinary Genitourinary: Reports abnormal vaginal bleeding and Reports vaginal discharge Musculoskeletal Musculoskeletal: Denies neck pain and Denies numbness Integumentary/Breasts Skin/Breast: Denies pruritus, Denies erythema, Denies rash and Denies wounds Neurologic Neurologic: Denies behavioral changes, Denies confusion, Denies dizziness, Denies frequent falls, Denies loss of vision, Denies numbness and Denies weakness Psychiatric Psychiatric: Denies anxiety, Denies behavioral changes, Denies confusion, Denies depression, Denies homicidal ideation and Denies suicidal ideation Endocrine Endocrine: Denies fatigue, Denies flushing and Denies palpitations Hematologic/Lymphatic Hematologic/Lymphatic: Denies easy bruising Allergic/Immunologic Allergic/Immunologic: Denies urticaria, Denies throat swelling and Denies wheezing Patient History <Catalino Alba PA-C - Last Filed: 09/16/24 18:59> Medical History (Updated 09/16/24 @ 19:09 by Catalino Alba PA-C) Hematuria Alcoholism in remission Age-related nuclear cataract, bilateral Atrophy of vagina Hyperlipidemia associated with type 2 diabetes mellitus Essential hypertension Type 2 diabetes mellitus Surgical History Anesthesia History of section (~04/13/88) History of hernia surgery Family History Father Parkinson's disease Brother Diabetes mellitus Heart disease History of heart attack Sister Diabetes mellitus Exam <Catalino Alba PA-C - Last Filed: 09/16/24 18:59> Narrative Exam Narrative: Const General:?cooperative, healthy appearing and comfortable [facility] Head:?normal to inspection Ears:?hearing grossly normal bilaterally Nose:?external nose normal Face and sinus:?normal facial exam and sinuses nontender Mouth:?oral mucosae normal Throat:?posterior oropharynx normal Eyes General:?appearance normal, both eyes and all related structures Neck Neck:?normal visual inspection and no lymphadenopathy noted Resp Effort & Inspection:?normal respiratory effort Auscultation:?clear to auscultation bilaterally Cardio Rate:?regular rate Rhythm:?regular rhythm Speculum exam shows normal vaginal wall with no lacerations, injuries. The cervix does have a whitish bump. No gross blood noted on exam. Neuro General:?patient alert, patient awake and patient oriented x3 Initial Vital Signs Initial Vital Signs: Vital Signs Temperature 98.2 F 09/16/24 16:43 Pulse Rate 73 09/16/24 16:43 Respiratory Rate 16 09/16/24 16:43 Blood Pressure 144/80 H 09/16/24 16:43 Pulse Oximetry 99 09/16/24 16:43 Oxygen Delivery Method Room Air 09/16/24 16:43 <Yisel Baumann MD - Last Filed: 09/17/24 00:52> Initial Vital Signs Initial Vital Signs: Vital Signs Temperature 98.2 F 09/16/24 16:43 Pulse Rate 73 09/16/24 16:43 Respiratory Rate 16 09/16/24 16:43 Blood Pressure 144/80 H 09/16/24 16:43 Pulse Oximetry 99 09/16/24 16:43 Oxygen Delivery Method Room Air 09/16/24 16:43 Course <Catalino Alba PA-C - Last Filed: 09/16/24 18:59> Orders Ordered: ED Orders 09/16/24 17:53 US pelvic complete Stat Wet Prep Tric BV Melonie Stat Vital Signs Vital signs: Vital Signs - 8 hr 09/16/24 19:24 Temperature 98.5 F Pulse Rate 67 Respiratory Rate 18 Blood Pressure 159/86 H Pulse Oximetry 96 Oxygen Delivery Method Room Air <Yisel Baumann MD - Last Filed: 09/17/24 00:52> Orders Ordered: ED Orders 09/16/24 17:53 US pelvic complete Stat Wet Prep Tric BV Melonie Stat Vital Signs Vital signs: Vital Signs - 8 hr 09/16/24 19:24 Temperature 98.5 F Pulse Rate 67 Respiratory Rate 18 Blood Pressure 159/86 H Pulse Oximetry 96 Oxygen Delivery Method Room Air MDM - Female Genitourinary <Catalino Alba PA-C - Last Filed: 09/16/24 18:59> Lab Data Labs: Urine Dip Bedside Urine Glucose Negative Bedside Urine Bilirubin - Negative Bedside Urine Ketone - Negative Urine Specific [place] 1.025 Bedside Urine Occult Blood - Negative Bedside Urine pH 5.5 Bedside Urine Protein - Negative Bedside Urine Urobilinogen - Negative Bedside Urine Nitrite - Negative Bedside Urine Leukocytes - Negative Esterase MDM Narrative Medical decision making narrative: 68-year-old female with past medical history type 2 diabetes, hypertension, hyperlipidemia, cystocele, alcohol use disorder in remission presents to the ED with 4 days of vaginal bleeding. Concern for BV versus yeast infection versus malignancy versus atrophic vaginitis versus other. On speculum exam, no bleeding noted, a white spot was seen on the cervix. Wet mount shows occasional WBC and is negative for clue cells/yeast/Trichomonas. Will obtain ultrasound. Urine dip today was negative for UTI. Will likely discharge, with follow-up with director web. Patient signed out to Dr. Yisel Baumann. <Yisel Baumann MD - Last Filed: 09/17/24 00:52> Lab Data Labs: Urine Dip Bedside Urine Glucose Negative Bedside Urine Bilirubin - Negative Bedside Urine Ketone - Negative Urine Specific [place] 1.025 Bedside Urine Occult Blood - Negative Bedside Urine pH 5.5 Bedside Urine Protein - Negative Bedside Urine Urobilinogen - Negative Bedside Urine Nitrite - Negative Bedside Urine Leukocytes - Negative Esterase MDM Narrative Medical decision making narrative: 68-year-old female with past medical history type 2 diabetes, hypertension, hyperlipidemia, cystocele, alcohol use disorder in remission presents to the ED with 4 days of vaginal bleeding. Concern for BV versus yeast infection versus malignancy versus atrophic vaginitis versus other. On speculum exam, no bleeding noted, a white spot was seen on the cervix. Wet mount shows occasional WBC and is negative for clue cells/yeast/Trichomonas. Will obtain ultrasound. Urine dip today was negative for UTI. Will likely discharge, with follow-up with director web. Patient signed out to Dr. Yisel Baumann. Dr. Baumann -care of patient is signed out to me by HERMAN Alba. Ultrasound shows normal endometrial thickness. There is a 0.5 cm nonvascular focus just deep to the endometrial canal that is noted to be a possible fibroid. Ultrasound findings discussed with the patient. She has upcoming appointment with OBGYN. She was advised to discuss the ultrasound results with her OBGYN for further investigation of her symptoms. Discharge Plan Departure Patient Disposition: Home Clinical Impression: Abnormal vaginal bleeding Instructions: DI for Vaginal Bleeding Activity Restrictions/Additional Instructions: You were evaluated in the ED today for abnormal vaginal bleeding. Your urine shows that the urinary tract infection has successfully resolved. It is reassuring that you have a gynecology on September 25. Please follow-up regarding the cystocele as well as the vaginal bleeding. Return to the ED if you have worsening symptoms. Your ultrasound shows normal endometrial thickness. Myometrial 0.5cm nonvascular echogenic focus just deep to the endometrial canal. This may be a fibroid, however you will need to talk to your OBGYN to see if any extra testing is needed. Prescriptions: No Action fluconazole 150 mg tablet 150 mg PO Q3D Qty: 2 0RF cefdinir 300 mg capsule 300 mg PO BID nitrofurantoin monohyd/m-cryst [Macrobid] 100 mg capsule 100 mg PO BID 7 Days Qty: 14 0RF Rx Instructions: must administer with a meal/food metformin 1,000 mg tablet 1,000 mg PO BID Qty: 180 0RF atorvastatin 20 mg tablet 20 mg PO DAILY Qty: 90 3RF (DME) OneTouch Verio test strips Strip See Rx Instructions .ROUTE .MEDSUPPLY Qty: 100 6RF Rx Instructions: Use to check Blood Sugars once daily. multivitamin tablet 1 tab PO DAILY Referrals: Nancy Aguilar MD [Primary Care Provider] - Stand Alone Forms: Patient Portal/API/Survey
[2024-09-16 19:24] VITALS: BP 159/86; PULSE 67; RESP 18; TEMP 36.9; O2SAT 96
== END 2024-09-16 19:50 | disposition home or self-care (01) ==
PROVIDERS: Emergency Provider Student in an Organized Health Care Education/Training Program; PCP Student in an Organized Health Care Education/Training Program
DX: N93.9 Abnormal uterine and vaginal bleeding, unspecified (principal)
CPT/HCPCS: 76830; 76856; 81003; 87210; 99283

== ENCOUNTER → 2024-09-25 10:52 | Outpatient (CLI) | payer MEDICARE, OTHER, SELFPAY | PROVIDERS: PCP Student in an Organized Health Care Education/Training Program; Referring Provider Specialist; Visit Provider Specialist | DX: N39.0 Urinary tract infection, site not specified (principal) | CPT/HCPCS: 87077; 87086; 87147; 87186 ==

== ENCOUNTER → 2024-10-24 10:38 | Outpatient (CLI) | payer MEDICARE, OTHER, SELFPAY | PROVIDERS: Family Provider Student in an Organized Health Care Education/Training Program; PCP Student in an Organized Health Care Education/Training Program; Visit Provider Registered Nurse | DX: R30.0 Dysuria (principal); N89.8 Other specified noninflammatory disorders of vagina | CPT/HCPCS: 87077; 87086; 87186; 87210 ==

== ENCOUNTER 2024-11-10 14:45 | Outpatient (RCR) | payer MEDICARE, OTHER, SELFPAY ==
--- NOTE | 2024-11-10 17:51 | PT.OIE ---
Current Diagnoses Stiffness of unspecified hip, not elsewhere classified (11/10/24) Muscle weakness (generalized) (11/10/24) Urge incontinence (11/10/24) Other female genital prolapse (11/10/24) Other abnormalities of gait and mobility (11/10/24) Past Medical History (Last Reviewed 10/24/24 @ 10:57 by MAYA Jones) Age-related nuclear cataract, bilateral Alcoholism in remission Atrophy of vagina Essential hypertension Hematuria Hyperlipidemia associated with type 2 diabetes mellitus Type 2 diabetes mellitus Past Surgical History (Last Reviewed 10/24/24 @ 10:57 by MAYA Jones) Anesthesia History of section (~04/13/88) History of hernia surgery Visit Care Team Role Provider Type Nancy Aguilar MD Family Provider Physician Primary Care Provider Specialty: Family Practice Obstetrics Address: [address] [place] [address] Email: [email or web address] Gaby Madrigal MD Attending Provider Physician Referring Provider Specialty: PHYSICIAN ALLERGIST IMMUNOLOGIST Address: [address] [place] [address] Email: [email or web address] Physical Therapy Initial Evaluation PT-OP-A Visit Information Start: 10/28/24 18:49 Freq: Status: Active Protocol: Document 11/10/24 15:21 LRN (Rec: 11/10/24 17:44 LRN [id number]) Out-Patient Physical Therapy Visit Information Visit Information Visit Type Initial Evaluation Visit Start Time 15:21 Visit Stop Time 16:22 Visit Number 1 Evaluation Information Evaluation Date 11/10/24 Precautions Precautions Current Bladder Prolapse, Possible vaginal infection - pt planning on getting it checked. Diabetes type I PT-OP-B Current Condition Start: 10/28/24 18:49 Freq: Status: Active Protocol: Document 11/10/24 15:21 LRN (Rec: 11/10/24 17:44 LRN [id number]) Current Condition History of Current Condition Onset Date 03/2024 Current Complaints Prolapse, having a little blood and discharge with frequent UTI's. History of Current Condition During the pandemic was told she had a prolapse. In March 2024, lifted something too heavy (piece of furniture and carried it to her car) and felt something drop into her PF. States she used to push it back up, but now can stand and forward bend to draw her bladder back up. She has learned to bend over, then sit quickly to urinate. Since prolapse she has had a lot of UTI's the past year. She ended antibiotics a couple weeks ago, and now she feels like she has a UTI again. Still has discharge and a spotting of blood in underwear . Doesn't recall ever going through menopause. Pt reports 2G2P, first child C- section due to being breach, 2nd child 9+# of vaginal . Prior Treatments and Tests None. Treatment Goals Patient/Caregiver Goals Pt goals: - Consistent with independent self care HEP. - Reduce feeling of bulge with behavioural modification. Feels bulge when urinating. - Strengthening of PF. - Reduce feeling of daily wettness in underwear. Personal Factors Other Personal Factors That May Effect -Hx of multiple UTI's, Therapy/Recovery currently symptoms of UTI. -Diabetes, (loss of wgt from 200+ to 164), -Pt urinating in bucket by bedside due to not able to make it to bathroom to urinate in the middle of the night. -Double inguinal hernia - repaired as 6 yo. PT-OP-C Subjective Start: 10/28/24 18:49 Freq: Status: Active Protocol: Document 11/10/24 15:21 LRN (Rec: 11/10/24 17:44 LRN [id number]) Patient Questionnaires Pelvic Pain and Urgency/Frequency Patient Symptom Scale Pelvic Pain Score 6 PT-OP-I Pelvic Floor Start: 10/28/24 18:49 Freq: Status: Active Protocol: Document 11/10/24 15:21 LRN (Rec: 11/10/24 17:44 LRN [id number]) Pelvic Floor Assessment Urine Urinary Symptoms Prolapse,Falling Out Feeling/ Heavy Other Urinary Symptoms Occasional tiny spottng of blood on underwear and brownish discarage. Nocturia 4x Pads Used In 24 Hours 0 Bowel Bowel Surgery No Bowel Movement Frequency 1/day [place] Stool Chart Type 1-7 4 Prolapse Cystocele Grade 2 Perineal Descent Resting Absent Bearing Present Contraction Ability Voluntary Contraction Moderate Voluntary Relaxation Weak Manual Muscle Testing Left 2 Manual Muscle Testing Right 1 Manual Muscle Testing Anterior 0 Manual Muscle Testing Posterior 3 Muscle Endurance (Seconds) 10 Number of Quick Contractions In 10 4 Seconds PT-OP-J Posture/Palpation/Skin Start: 10/28/24 18:49 Freq: Status: Active Protocol: Document 11/10/24 15:21 LRN (Rec: 11/10/24 17:44 LRN [id number]) Posture Evaluation Position Standing Evaluation View All positions Shoulder Posture (L) Elevated Arm Posture (L) Internally Rotated,(R) Internally Rotated Weight Distribution Weight Shifted Anterior Knee Posture (L) Genu Varus,(R) Genu Varus Comments Posture Comments Mild varus of legs. PT-OP-K Range of Motion Start: 10/28/24 18:49 Freq: Status: Active Protocol: Document 11/10/24 15:21 LRN (Rec: 11/10/24 17:44 LRN [id number]) Lumbar Spine Range of Motion Lumbar Spine Active Degrees Testing Position Standing Flexion 140 Extension 15 Rotation Left 40 Rotation Right 20 Lateral Flexion Left 20 Lateral Flexion Right 10 ROM Limitations Soft Tissue Tightness Hip Goniometric Range of Motion Hip Right Passive Testing Position Supine Internal Rotation 10 External Rotation 60 Comments Hips at 90/90 for ROM Left Passive Testing Position Supine Internal Rotation 10 External Rotation 60 Comments Hips at 90/90 for ROM PT-OP-M Strength Start: 10/28/24 18:49 Freq: Status: Active Protocol: Document 11/10/24 15:21 LRN (Rec: 11/10/24 17:44 LRN [id number]) Trunk Strength Trunk Manual Muscle Testing Core Stabilization Core stability decreased with rotation. Hip Strength Hip Manual Muscle Testing Right Flexion (L2) 4 Good Extension (S1) 4 Good Internal Rotation 3 Fair Comments Strength is 5/5 except as indicated above. Left Extension (S1) 4- Good- External Rotation 4- Good- Internal Rotation 3 Fair Comments Strength is 5/5 except as indicated above. PT-OP-Q Treatments Start: 10/28/24 18:49 Freq: Status: Active Protocol: Document 11/10/24 15:21 LRN (Rec: 11/10/24 17:44 LRN [id number]) Therapeutic Activity Therapeutic Activity Getting into bed. Name Pt demonstration of Getting into bed Reps/Minutes 3' Comments Crawling onto table, goes down on R knee, then turns around to sit, swings leg onto table, then lies down in reverse sit up. Self-Care/Home Management Treatment Education Other Education Discussed results of evaluation, goals, treatment, and plan of care (POC) with pt ; pt agreeable to evaluation, goals, treatment, and POC. Discussed and educated pt in specifics for completion of in use of Bladder Diary and I/S in tracking for 1 week. Activities Self-Care/Home Management Activities Issued & reviewed HEP: Kegel ex's and discussed exercise of Quick Flicks, Long Holds. PT-OP-T Assessment and Plan Start: 10/28/24 18:49 Freq: Status: Active Protocol: Document 11/10/24 15:21 LRN (Rec: 11/10/24 17:44 LRN [id number]) Physical Therapy Assessment Rehab Potential Rehabilitation Potential Good Evaluation Complexity Number of Personal Factors/Comorbidities 3 or More Number of Body Systems Impaired 4 or More Clinical Presentation at Evaluation Evolving Impairments Impairments Activity Tolerance,Gait, Posture,ROM,Strength,Transfers Goals Four Impairment Urinary leakage with a strong urge at nighttime walking to BR. Short Term Goal (STG) Pt will be educated in urinary delay technique in order to delay urination for pt to walk to bathroom without leaking at nighttime. STG Duration 01/15/25 Jail Goal (LTG) Pt will improve PF strength with a decrease in urinary leakage and feeling of wetness in underwear. LTG Duration 02/05/25 Three Impairment PF weakness Short Term Goal (STG) Pt will be able to modify her behaviour for fluid intake and output with proper perineal hygiene to reduce UTI symptoms of PF heaviness and frequent urination. STG Duration 01/15/25 Jail Goal (LTG) Improve PF strength to improve bladder positioning and ability to urinate, to reduce UTI onset. LTG Duration 02/05/25 Two Impairment Bladder prolapse - extends into 1/2 vaginal canal, not past opening. Short Term Goal (STG) Pt will be educated in BM's without valsalve maneuver ( behaviour modification) and be able to have normal BM w/o a feeling of bladder prolapse. STG Duration 01/15/25 Jail Goal (LTG) Increase PF strength to reduce feeling/onset of daily prolapse bulge when urinating. - Strengthening of PF to reduce UTI onset. LTG Duration 02/05/25 One Impairment Pt lacks an independent self care HEP. Short Term Goal (STG) Pt will be educated and able to demonstrate transfers to lessen core abdominal pressure with breathing mechanics. STG Duration 11/27/24 Jail Goal (LTG) Pt will be independent in a self care HEP on wedge or with hip elevated for PF ( strengthening and relaxation after quick contraction)/core rot weakness/hip (L ext & IR> ER, R ext/flex, IR) strengthening, and ROM ex for hip IR & trunk (R rot/SB). LTG Duration 02/05/25 Assessment Summary Assessment Pt is a 69 yo female with grade 2 bladder prolapse extending into 1/2 vaginal canal, urge urinary incontinence at nighttime in absence of constipation, possible vaginal infection ( brownish discharge, small white chunks), poor core pressure management, PF weakness, decreased hip/trunk mobility & strength, and excessive sway with gait. The pt should be assessed for vaginal infection vs UTI. The pt will benefit from skilled physical therapy to work towards achieving the above stated goals. Physical Therapy Plan Frequency and Duration Frequency of Treatment 1x/Week Duration of treatment (weeks) 12 Plan of Care Start Date 11/10/24 Plan of Care End Date 02/05/25 Therapeutic Interventions Therapeutic Interventions Home Exercise Program,Manual Therapy,Neuromuscular Re- education,Self-Care/Home Management,Soft Tissue Mobilization,Therapeutic Activities,Therapeutic Exercises Other Referrals/Consults Referrals/Consults Recommended Assessment for vaginal infection. Next Visit Focus/Plan Next Note Type Treatment Note Next Visit Plan Next: Review bladder/bowel diary, pt education in bladder retraining with urge deference technique and vagina /genital care, proper Kegel on wedge without use of substitute muscles, core pressure management and proper coordinated breathing with transfers and body mechanics, deep breathing. Ther Ex/HEP: PF/core/hip strengthening. Assess STM of abdomen (and urachus) & bladder mobility. POC: Pt education , self care management, manual therapy, neuromuscular reeducation with vaginal sensor if infection can be permanently cleared, therapeutic exercises, and therapeutic activities.
--- NOTE | 2024-11-10 17:52 | PT.OPPOC ---
Addendum entered and electronically signed by Lyudmila Welch, PT 12/02/24 16:23: Resending Original Note: Physical, Occupational & Speech Therapy At [facility] Current Diagnoses Stiffness of unspecified hip, not elsewhere classified (11/10/24) Muscle weakness (generalized) (11/10/24) Urge incontinence (11/10/24) Other female genital prolapse (11/10/24) Other abnormalities of gait and mobility (11/10/24) Visit Care Team Role Provider Type Nancy Aguilar MD Family Provider Physician Primary Care Provider Specialty: Family Practice Obstetrics Address: [address] [place] [address], [id number] Email: [email or web address] Gaby Madrigal MD Attending Provider Physician Referring Provider Specialty: HAND EDGE BANDER Address: [address] [place] [address], [id number] Email: [email or web address] Plan Of Care PT-OP-B Current Condition Start: 10/28/24 18:49 Freq: Status: Active Protocol: Document 11/10/24 15:21 LRN (Rec: 11/10/24 17:44 LRN [id number]) Current Condition History of Current Condition Onset Date 03/2024 Current Complaints Prolapse, having a little blood and discharge with frequent UTI's. History of Current Condition During the pandemic was told she had a prolapse. In March 2024, lifted something too heavy (piece of furniture and carried it to her car) and felt something drop into her PF. States she used to push it back up, but now can stand and forward bend to draw her bladder back up. She has learned to bend over, then sit quickly to urinate. Since prolapse she has had a lot of UTI's the past year. She ended antibiotics a couple weeks ago, and now she feels like she has a UTI again. Still has discharge and a spotting of blood in underwear . Doesn't recall ever going through menopause. Pt reports 2G2P, first child C- section due to being breach, 2nd child 9+# of vaginal . Prior Treatments and Tests None. Treatment Goals Patient/Caregiver Goals Pt goals: - Consistent with independent self care HEP. - Reduce feeling of bulge with behavioural modification. Feels bulge when urinating. - Strengthening of PF. - Reduce feeling of daily wettness in underwear. Personal Factors Other Personal Factors That May Effect -Hx of multiple UTI's, Therapy/Recovery currently symptoms of UTI. -Diabetes, (loss of wgt from 200+ to 164), -Pt urinating in bucket by bedside due to not able to make it to bathroom to urinate in the middle of the night. -Double inguinal hernia - repaired as 6 yo. PT-OP-T Assessment and Plan Start: 10/28/24 18:49 Freq: Status: Active Protocol: Document 11/10/24 15:21 LRN (Rec: 11/10/24 17:44 LRN [id number]) Physical Therapy Assessment Rehab Potential Rehabilitation Potential Good Evaluation Complexity Number of Personal Factors/Comorbidities 3 or More Number of Body Systems Impaired 4 or More Clinical Presentation at Evaluation Evolving Impairments Impairments Activity Tolerance,Gait, Posture,ROM,Strength,Transfers Goals Four Impairment Urinary leakage with a strong urge at nighttime walking to BR. Short Term Goal (STG) Pt will be educated in urinary delay technique in order to delay urination for pt to walk to bathroom without leaking at nighttime. STG Duration 01/15/25 Senior Care Goal (LTG) Pt will improve PF strength with a decrease in urinary leakage and feeling of wetness in underwear. LTG Duration 02/05/25 Three Impairment PF weakness Short Term Goal (STG) Pt will be able to modify her behaviour for fluid intake and output with proper perineal hygiene to reduce UTI symptoms of PF heaviness and frequent urination. STG Duration 01/15/25 Senior Care Goal (LTG) Improve PF strength to improve bladder positioning and ability to urinate, to reduce UTI onset. LTG Duration 02/05/25 Two Impairment Bladder prolapse - extends into 1/2 vaginal canal, not past opening. Short Term Goal (STG) Pt will be educated in BM's without valsalve maneuver ( behaviour modification) and be able to have normal BM w/o a feeling of bladder prolapse. STG Duration 01/15/25 Injection Maintenance Technician Goal (LTG) Increase PF strength to reduce feeling/onset of daily prolapse bulge when urinating. - Strengthening of PF to reduce UTI onset. LTG Duration 02/05/25 One Impairment Pt lacks an independent self care HEP. Short Term Goal (STG) Pt will be educated and able to demonstrate transfers to lessen core abdominal pressure with breathing mechanics. STG Duration 11/27/24 Senior Care Goal (LTG) Pt will be independent in a self care HEP on wedge or with hip elevated for PF ( strengthening and relaxation after quick contraction)/core rot weakness/hip (L ext & IR> ER, R ext/flex, IR) strengthening, and ROM ex for hip IR & trunk (R rot/SB). LTG Duration 02/05/25 Assessment Summary Assessment Pt is a 69 yo female with grade 2 bladder prolapse extending into 1/2 vaginal canal, urge urinary incontinence at nighttime in absence of constipation, possible vaginal infection ( brownish discharge, small white chunks), poor core pressure management, PF weakness, decreased hip/trunk mobility & strength, and excessive sway with gait. The pt should be assessed for vaginal infection vs UTI. The pt will benefit from skilled physical therapy to work towards achieving the above stated goals. Physical Therapy Plan Frequency and Duration Frequency of Treatment 1x/Week Duration of treatment (weeks) 12 Plan of Care Start Date 11/10/24 Plan of Care End Date 02/05/25 Therapeutic Interventions Therapeutic Interventions Home Exercise Program,Manual Therapy,Neuromuscular Re- education,Self-Care/Home Management,Soft Tissue Mobilization,Therapeutic Activities,Therapeutic Exercises Other Referrals/Consults Referrals/Consults Recommended Assessment for vaginal infection. Next Visit Focus/Plan Next Note Type Treatment Note Next Visit Plan Next: Review bladder/bowel diary, pt education in bladder retraining with urge deference technique and vagina /genital care, proper Kegel on wedge without use of substitute muscles, core pressure management and proper coordinated breathing with transfers and body mechanics, deep breathing. Ther Ex/HEP: PF/core/hip strengthening. Assess STM of abdomen (and urachus) & bladder mobility. POC: Pt education , self care management, manual therapy, neuromuscular reeducation with vaginal sensor if infection can be permanently cleared, therapeutic exercises, and therapeutic activities. Plan of Care Dates Plan of Care Start Date 11/10/24 Plan of Care End Date 02/05/25 Electronically Signed by: Lyudmila Welch, PT 11/10/24 0901 If you are in agreement with this Plan of Care, please return a signed and dated copy. I have reviewed this Plan of Care and certify that the skilled therapy services above are required to meet the patient?s needs. Physician Signature Date Printed Name and Credentials Clinical Instructor Signature Printed Name and Credentials
--- NOTE | 2024-12-04 15:06 | PT.OPDS ---
Current Diagnoses Stiffness of unspecified hip, not elsewhere classified (11/10/24) Muscle weakness (generalized) (11/10/24) Urge incontinence (11/10/24) Other female genital prolapse (11/10/24) Other abnormalities of gait and mobility (11/10/24) Visit Care Team Role Provider Type Nancy Aguilar MD Family Provider Physician Primary Care Provider Specialty: Family Practice Obstetrics Address: [address] [place] [id number] Email: [email or web address] Gaby Madrigal MD Attending Provider Physician Referring Provider Specialty: MANUFACTURING TEACHER Address: [address] [place] [address], [id number] Email: [email or web address] Visit Number Visit Number 1 Discharge Summary PT-OP-B Current Condition Start: 10/28/24 18:49 Freq: Status: Active Protocol: Document 11/10/24 15:21 LRN (Rec: 11/10/24 17:44 LRN [id number]) Current Condition History of Current Condition Onset Date 03/2024 Current Complaints Prolapse, having a little blood and discharge with frequent UTI's. History of Current Condition During the pandemic was told she had a prolapse. In March 2024, lifted something too heavy (piece of furniture and carried it to her car) and felt something drop into her PF. States she used to push it back up, but now can stand and forward bend to draw her bladder back up. She has learned to bend over, then sit quickly to urinate. Since prolapse she has had a lot of UTI's the past year. She ended antibiotics a couple weeks ago, and now she feels like she has a UTI again. Still has discharge and a spotting of blood in underwear . Doesn't recall ever going through menopause. Pt reports 2G2P, first child C- section due to being breach, 2nd child 9+# of vaginal . Prior Treatments and Tests None. Treatment Goals Patient/Caregiver Goals Pt goals: - Consistent with independent self care HEP. - Reduce feeling of bulge with behavioural modification. Feels bulge when urinating. - Strengthening of PF. - Reduce feeling of daily wettness in underwear. Personal Factors Other Personal Factors That May Effect -Hx of multiple UTI's, Therapy/Recovery currently symptoms of UTI. -Diabetes, (loss of wgt from 200+ to 164), -Pt urinating in bucket by bedside due to not able to make it to bathroom to urinate in the middle of the night. -Double inguinal hernia - repaired as 6 yo. PT-OP-C Subjective Start: 10/28/24 18:49 Freq: Status: Active Protocol: Document 11/10/24 15:21 LRN (Rec: 11/10/24 17:44 LRN [id number]) Patient Questionnaires Pelvic Pain and Urgency/Frequency Patient Symptom Scale Pelvic Pain Score 6 PT-OP-I Pelvic Floor Start: 10/28/24 18:49 Freq: Status: Active Protocol: Document 11/10/24 15:21 LRN (Rec: 11/10/24 17:44 LRN [id number]) Pelvic Floor Assessment Urine Urinary Symptoms Prolapse,Falling Out Feeling/ Heavy Other Urinary Symptoms Occasional tiny spottng of blood on underwear and brownish discarage. Nocturia 4x Pads Used In 24 Hours 0 Bowel Bowel Surgery No Bowel Movement Frequency 1/day Bunn Stool Chart Type 1-7 4 Prolapse Cystocele Grade 2 Perineal Descent Resting Absent Bearing Present Contraction Ability Voluntary Contraction Moderate Voluntary Relaxation Weak Manual Muscle Testing Left 2 Manual Muscle Testing Right 1 Manual Muscle Testing Anterior 0 Manual Muscle Testing Posterior 3 Muscle Endurance (Seconds) 10 Number of Quick Contractions In 10 4 Seconds PT-OP-J Posture/Palpation/Skin Start: 10/28/24 18:49 Freq: Status: Active Protocol: Document 11/10/24 15:21 LRN (Rec: 11/10/24 17:44 LRN [id number]) Posture Evaluation Position Standing Evaluation View All positions Shoulder Posture (L) Elevated Arm Posture (L) Internally Rotated,(R) Internally Rotated Weight Distribution Weight Shifted Anterior Knee Posture (L) Genu Varus,(R) Genu Varus Comments Posture Comments Mild varus of legs. PT-OP-K Range of Motion Start: 10/28/24 18:49 Freq: Status: Active Protocol: Document 11/10/24 15:21 LRN (Rec: 11/10/24 17:44 LRN [id number]) Lumbar Spine Range of Motion Lumbar Spine Active Degrees Testing Position Standing Flexion 140 Extension 15 Rotation Left 40 Rotation Right 20 Lateral Flexion Left 20 Lateral Flexion Right 10 ROM Limitations Soft Tissue Tightness Hip Goniometric Range of Motion Hip Right Passive Testing Position Supine Internal Rotation 10 External Rotation 60 Comments Hips at 90/90 for ROM Left Passive Testing Position Supine Internal Rotation 10 External Rotation 60 Comments Hips at 90/90 for ROM PT-OP-M Strength Start: 10/28/24 18:49 Freq: Status: Active Protocol: Document 11/10/24 15:21 LRN (Rec: 11/10/24 17:44 LRN [id number]) Trunk Strength Trunk Manual Muscle Testing Core Stabilization Core stability decreased with rotation. Hip Strength Hip Manual Muscle Testing Right Flexion (L2) 4 Good Extension (S1) 4 Good Internal Rotation 3 Fair Comments Strength is 5/5 except as indicated above. Left Extension (S1) 4- Good- External Rotation 4- Good- Internal Rotation 3 Fair Comments Strength is 5/5 except as indicated above. PT-OP-T Assessment and Plan Start: 10/28/24 18:49 Freq: Status: Active Protocol: Document 12/04/24 15:02 LRN (Rec: 12/04/24 15:06 LRN [id number]) Physical Therapy Assessment Goals Four Impairment Urinary leakage with a strong urge at nighttime walking to BR. Short Term Goal (STG) Pt will be educated in urinary delay technique in order to delay urination for pt to walk to bathroom without leaking at nighttime. STG Duration 01/15/25 Alf Goal (LTG) Pt will improve PF strength with a decrease in urinary leakage and feeling of wetness in underwear. LTG Duration 02/05/25 Three Impairment PF weakness Short Term Goal (STG) Pt will be able to modify her behaviour for fluid intake and output with proper perineal hygiene to reduce UTI symptoms of PF heaviness and frequent urination. STG Duration 01/15/25 Alf Goal (LTG) Improve PF strength to improve bladder positioning and ability to urinate, to reduce UTI onset. LTG Duration 02/05/25 Two Impairment Bladder prolapse - extends into 1/2 vaginal canal, not past opening. Short Term Goal (STG) Pt will be educated in BM's without valsalve maneuver ( behaviour modification) and be able to have normal BM w/o a feeling of bladder prolapse. STG Duration 01/15/25 Management Nurse Rn Goal (LTG) Increase PF strength to reduce feeling/onset of daily prolapse bulge when urinating. - Strengthening of PF to reduce UTI onset. LTG Duration 02/05/25 One Impairment Pt lacks an independent self care HEP. Short Term Goal (STG) Pt will be educated and able to demonstrate transfers to lessen core abdominal pressure with breathing mechanics. STG Duration 11/27/24 Management Nurse Rn Goal (LTG) Pt will be independent in a self care HEP on wedge or with hip elevated for PF ( strengthening and relaxation after quick contraction)/core rot weakness/hip (L ext & IR> ER, R ext/flex, IR) strengthening, and ROM ex for hip IR & trunk (R rot/SB). LTG Duration 02/05/25 Assessment Summary Assessment Pt was seen for an initial evaluation on 11/10/24. Per phone message 11/26/24, pt cancelled all remaining appts. Goals were not met as pt discharged early without treatments. Physical Therapy Plan Discharge Physical Therapy Discharge Reasons Patient Request Discharge Comments Thank you for your referral.
== END 2024-12-11 09:51 | disposition home or self-care (01) ==
LOC: PHYS 14:45
PROVIDERS: Family Provider Student in an Organized Health Care Education/Training Program; PCP Student in an Organized Health Care Education/Training Program; Referring Provider Specialist; Visit Provider Specialist
DX: M62.81 Muscle weakness (generalized) (principal); M25.659 Stiffness of unspecified hip, not elsewhere classified; N39.41 Urge incontinence; R26.89 Other abnormalities of gait and mobility; N81.89 Other female genital prolapse
CPT/HCPCS: 97162; 97535

== ENCOUNTER → 2024-11-21 10:58 | Outpatient (CLI) | payer MEDICARE, OTHER, SELFPAY ==
[2024-11-21 12:40] LABS: Hemoglobin A1C% w Est Avg Glu 5.3 % (4.0-6.0)
== END ==
PROVIDERS: Family Provider Student in an Organized Health Care Education/Training Program; PCP Student in an Organized Health Care Education/Training Program; Referring Provider Student in an Organized Health Care Education/Training Program; Visit Provider Student in an Organized Health Care Education/Training Program
DX: E11.9 Type 2 diabetes mellitus without complications (principal)
CPT/HCPCS: 36415; 83036

== ENCOUNTER → 2025-02-14 10:02 | Outpatient (CLI) | payer MEDICARE, OTHER, SELFPAY | PROVIDERS: Family Provider Student in an Organized Health Care Education/Training Program; PCP Student in an Organized Health Care Education/Training Program; Visit Provider Chiropractor | DX: N39.0 Urinary tract infection, site not specified (principal); N89.8 Other specified noninflammatory disorders of vagina; R30.0 Dysuria; R31.9 Hematuria, unspecified | CPT/HCPCS: 81002; 87077; 87086; 87186; 87210 ==

== ENCOUNTER → 2025-05-19 08:36 | Outpatient (CLI) | payer MEDICARE, OTHER, SELFPAY ==
[2025-05-19 09:00] LABS: Add Manual Diff / Slide Review NO; Hematocrit 39.3 % (36-46); Hemoglobin 13.3 g/dL (12.0-16.0); Lymphocytes Absolute Auto 800 /uL (1100-4500); Mean Corpuscular HGB Conc 33.8 % (30-36); Mean Corpuscular Hemoglobin 29.3 PG (26-34); Mean Corpuscular Volume 86.8 fL (80-100); Platelet Count 215 X10^3/uL (150-400)
[2025-05-19 09:19] LABS: Alanine Aminotransferase 20 IU/L (<35); Albumin 4.1 g/dL (3.5-5.0); Albumin Globulin Ratio 1.9 (1.0-2.8); Alkaline Phosphatase 64 U/L (38-126); Blood Urea Nitrogen 23 mg/dL (7-17); Calcium 9.3 mg/dL (8.4-10.2); Carbon Dioxide 23 mmol/L (22-32); Chloride 102 mmol/L (98-107); Cholesterol 141 mg/dL (140-199); Estimated Glomerular Filt Rate > 60 mL/min (>60); Globulin 2.2 g/dL (1.7-4.1); Glucose 110 mg/dL (70-99); HDL Cholesterol 91 mg/dL (40-60); HEMOLYSIS < 15 (0-50); Potassium 4.1 mmol/L (3.4-5.1); Sodium 132 mmol/L (137-145); Total Protein 6.3 g/dL (6.3-8.2); Triglycerides 51 mg/dL (35-150)
[2025-05-19 09:25] LABS: Hemoglobin A1C% w Est Avg Glu 5.9 % (4.0-6.0)
[2025-05-19 09:50] LABS: Thyroid Stimulating Hormone 1.80 uIU/mL (0.47-4.68)
[2025-05-19 10:17] LABS: Microalbumi Creatinin Ratio Ur 13.0 ug/mg CR (<30)
== END ==
PROVIDERS: Family Provider Student in an Organized Health Care Education/Training Program; PCP Student in an Organized Health Care Education/Training Program; Referring Provider Student in an Organized Health Care Education/Training Program; Visit Provider Student in an Organized Health Care Education/Training Program
DX: E11.69 Type 2 diabetes mellitus with other specified complication (principal); I10 Essential (primary) hypertension; E78.5 Hyperlipidemia, unspecified
CPT/HCPCS: 36415; 80053; 80061; 82043; 82570; 83036; 84443; 85025

== ENCOUNTER → 2025-05-25 08:15 | Outpatient (CLI) | payer MEDICARE, OTHER, SELFPAY ==
[2025-05-25 10:49] LABS: Appearance Urine UA CLEAR; Bilirubin Urine UA NEGATIVE (NEGATIVE); Color Urine UA YELLOW; Glucose Urine UA NEGATIVE (Negative); Ketones Urine UA NEGATIVE (NEGATIVE); Leukocyte Esterase Urine UA TRACE (NEGATIVE); Nitrite Urine UA NEGATIVE (Negative); Occult Blood Urine UA NEGATIVE (Negative); Protein Urine UA NEGATIVE (Negative); Specific Gravity Urine UA 1.025 (1.000-1.035); Urobilinogen Urine UA 0.2 E.U./dL (0.2)
[2025-05-25 10:50] LABS: pH Urine UA 5.5 (4.5-8.0)
== END ==
PROVIDERS: Family Provider Student in an Organized Health Care Education/Training Program; PCP Student in an Organized Health Care Education/Training Program; Visit Provider Student in an Organized Health Care Education/Training Program
DX: R35.0 Frequency of micturition (principal)
CPT/HCPCS: 81001; 87086

== ENCOUNTER → 2025-05-29 11:00 | Outpatient (CLI) | payer MEDICARE, OTHER, SELFPAY | LOC: LAB 11:03 | PROVIDERS: Family Provider Student in an Organized Health Care Education/Training Program; PCP Student in an Organized Health Care Education/Training Program; Referring Provider Student in an Organized Health Care Education/Training Program; Visit Provider Student in an Organized Health Care Education/Training Program | DX: Z12.11 Encounter for screening for malignant neoplasm of colon (principal) | CPT/HCPCS: 82274 ==

== ENCOUNTER → 2025-07-28 11:16 | Outpatient (CLI) | payer MEDICARE, OTHER, SELFPAY | PROVIDERS: Family Provider Student in an Organized Health Care Education/Training Program; PCP Student in an Organized Health Care Education/Training Program; Visit Provider Physician Assistant | DX: N39.0 Urinary tract infection, site not specified (principal) | CPT/HCPCS: 87086 ==

== ENCOUNTER → 2025-08-01 15:30 | Outpatient (CLI) | payer MEDICARE, OTHER, SELFPAY | PROVIDERS: Family Provider Student in an Organized Health Care Education/Training Program; PCP Student in an Organized Health Care Education/Training Program; Visit Provider Nurse Practitioner Family | DX: R30.0 Dysuria (principal) | CPT/HCPCS: 87086 ==